=== PATIENT | female | born 1955 | race Caucasian/White ===

== ENCOUNTER 2017-11-07 07:20 | Emergency (ER) | payer MEDICAID ==
--- NOTE | 2017-11-07 07:53 | EDM.PDOC ---
ED HPI GENERAL MEDICAL PROBLEM - General Chief Complaint: Chest Pain Stated Complaint: chest pain Time Seen by Provider: 11/07/17 07:30 Source of Information: Reports: Patient, [facility] Records History Limitations: Reports: No Limitations - History of Present Illness INITIAL COMMENTS - FREE TEXT/NARRATIVE: Patient presents to ER with complaints of chest/midepigastric pain. States pain started last evening but is worse this am. "Feels like someone is sitting on my chest". She denies shortness of breath or nausea. States fingers are hurting. When asked location of pain, points to midepigastric region. Has extensive medical history, see PMH. Has been at the [facility] now for a year. She was given 4 81 mg ASA prior to arrival. History of GERD, takes Protonix BID. Denies any concerns with that as of late. No blood in her stool that she is aware of. Duration: Day(s):, Getting Worse Location: Reports: Chest, Abdomen Quality: Reports: Pressure Severity: Moderate Improves with: Reports: None Associated Symptoms: Reports: Chest Pain. 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 Chest Pain Score (Numeric/FACES): 8 - Related Data Allergies Allergy/AdvReac Type Severity Reaction Status Date / Time No Known Allergies Allergy Verified 11/07/17 09:21 Home Meds: Home Meds Gabapentin [Neurontin] 300 mg PO BEDTIME 10/15/15 [History] Metoprolol Tartrate 25 mg PO BID 10/15/15 [History] Amiodarone [Cordarone] 200 mg PO DAILY 12/25/15 [History] Polyethylene Glycol 3350 [MiraLAX] 17 gm PO DAILY 12/25/15 [History] Simvastatin [Zocor] 10 mg PO BEDTIME 12/25/15 [History] Iron Polysaccharide Complex [Polysaccharide Iron 150] 150 mg PO DAILY 01/07/16 [ History] Acetaminophen [Tylenol] 650 mg PO Q8HR PRN 12/17/16 [History] Ascorbate Calcium [Vitamin C] 500 mg PO DAILY 12/17/16 [History] Calcium Carbonate/Vitamin D3 [Calcium 500-Vit D3 200 Tablet] 1 tab PO DAILY [History] Lactulose [Constulose] 15 ml PO DAILY 12/17/16 [History] Levothyroxine Sodium [Synthroid] 75 mcg PO DAILY 12/17/16 [History] Melatonin 1 tab PO BEDTIME PRN 12/17/16 [History] Multivitamin with Minerals [Multivitamins with Minerals] 1 tab PO DAILY [History] Pantoprazole Sodium 40 mg PO BID 12/17/16 [History] Polyvinyl Alcohol [Liquitears] 1 drop EYEBOTH ASDIRECTED PRN 12/17/16 [History] Potassium Chloride 10 meq PO DAILY 12/17/16 [History] Rivaroxaban [Xarelto] 20 mg PO WITHBREAKFAST 12/17/16 [History] Sennosides/Docusate Sodium [Senna Plus Tablet] 2 tab PO BID 12/17/16 [History] Acetaminophen/HYDROcodone [[place] 325-10 MG] 1 tab PO Q6H PRN #14 tablet [Rx] Past Medical History HEENT History: Reports: Impaired Vision, Other (See Below) Other HEENT History: dental caries. Pt wears glasses and states that she sees well with them Cardiovascular History: Reports: Afib, High Cholesterol, Hypertension Respiratory History: Reports: Asthma Gastrointestinal History: Reports: GERD Genitourinary History: Reports: Acute Renal Failure, Urinary Incontinence CHECKOUT OPERATOR History: Reports: Dysfunctional Uterine Bleeding, , Other (See Below) Other CHECKOUT OPERATOR History: uterine cancer Musculoskeletal History: Reports: Arthritis, Back Pain, Chronic, Other (See Below) Other Musculoskeletal History: left knee pain Neurological History: Reports: Neuropathy, Diabetic Psychiatric History: Reports: Depression Endocrine/Metabolic History: Reports: Diabetes, Type II, Obesity/BMI 30+ Hematologic History: Reports: Anemia Oncologic (Cancer) History: Reports: Ovarian - Infectious Disease History Infectious Disease History: Reports: Chicken Pox, Measles, Mumps - Past Surgical History HEENT Surgical History: Reports: None Cardiovascular Surgical History: Reports: None Respiratory Surgical History: Reports: None GI Surgical History: Reports: Hernia Repair/Other Female Surgical History: Reports: None Endocrine Surgical History: Reports: None Neurological Surgical History: Reports: None Social & Family History - Family History Family Medical History: Noncontributory - Tobacco Use Smoking Status *Q: Never Smoker - Caffeine Use Caffeine Use: Reports: Soda ED ROS GENERAL - Review of Systems Review Of Systems: See Below Constitutional: Reports: Weakness. Denies: Fever, Chills, Malaise, Decreased Appetite HEENT: Reports: No Symptoms Respiratory: Denies: Shortness of Breath, Cough Cardiovascular: Reports: Chest Pain. Denies: Edema, Lightheadedness Endocrine: Reports: Fatigue GI/Abdominal: Reports: Abdominal Pain. Denies: Nausea, Vomiting : Reports: Incontinence Musculoskeletal: Reports: Hand Pain, Leg Pain Skin: Reports: No Symptoms Neurological: Reports: Other (restless arm and leg movements) ED EXAM, GENERAL - Physical Exam Exam: See Below Exam Limited By: No Limitations General Appearance: Alert, WD/WN, No Apparent Distress Ears: Normal External Exam, Normal TMs Nose: Normal Inspection, Normal Mucosa, No Blood Throat/Mouth: Normal Inspection, Normal Oropharynx Head: Normocephalic Neck: Normal Inspection, Supple, Non-Tender Respiratory/Chest: No Respiratory Distress, Lungs Clear, Normal Breath Sounds Cardiovascular: Regular Rate, Rhythm GI/Abdominal: Normal Bowel Sounds, Soft, Non-Tender Extremities: Normal Inspection Neurological: Alert, Oriented Skin Exam: Warm Course - Vital Signs Last Recorded V/S: Last Vital Signs Temp 96.7 F 11/07/17 07:29 Pulse 86 11/07/17 08:15 Resp 18 11/07/17 08:15 BP 158/75 H 11/07/17 08:15 Pulse Ox 97 11/07/17 08:15 - Orders/Labs/Meds Orders: Active Orders 24 hr Category Date Time Status Chest 1V Frontal [CR] Stat Exams 11/07/17 07:00 Taken Labs: Laboratory Tests 11/07/17 11/07/17 11/07/17 Range/Units 07:25 07:25 07:25 WBC 7.5 (5.0-10.0) 10^3/uL RBC 4.06 (4.00-5.50) 10^6/uL Hgb 12.2 (12.0-16.0) g/dL Hct 39.8 (37.0-47.0) % MCV 98.0 H (82.0-94.0) fL MCH 30.0 (27.0-32.0) pg MCHC 30.7 L (33.0-38.0) g/dL RDW Coeff of Barbara 12.6 (11.0-15.0) % Plt Count 234 (150-400) 10^3/uL Neut % (Auto) 60.2 (35-85) % Lymph % (Auto) 27.3 (10-55) % [place] % (Auto) 10.5 (0-16) % Eos % (Auto) 1.6 (0-5) % Baso % (Auto) 0.4 (0-3) % Neut # (Auto) 4.49 (1.80-7.00) 10^3/uL Lymph # (Auto) 2.04 (1.00-4.80) 10^3/uL [place] # (Auto) 0.78 (0.00-0.80) 10^3/uL Eos # (Auto) 0.12 (0.00-0.45) 10^3/uL Baso # (Auto) 0.03 10^3/uL PT 11.8 (9.7-12.3) SEC INR 1.15 (0.92-1.18) Sodium 139 (136-145) mEq/L Potassium 4.4 (3.5-5.0) mEq/L Chloride 102 (98-106) mEq/L Carbon Dioxide 33 H (21-32) mmol/L BUN 28 H (7-18) mg/dL Creatinine 1.5 H (0.6-1.0) mg/dL Est Cr Clr Drug Dosing 47.47 mL/min Estimated GFR (MDRD) 35 L (>=60) mL/min Glucose 101 H (75-99) mg/dL Calcium 9.1 (8.4-10.1) mg/dL Total Bilirubin 0.5 (0.0-1.0) mg/dL AST 18 (15-37) U/L ALT 15 (12-78) U/L Alkaline Phosphatase 89 (46-116) U/L Lactate Dehydrogenase 86 L (100-190) U/L Creatine Kinase 28 (21-215) U/L Troponin I < 0.017 (0.00-0.06) ng/mL C-Reactive Protein 0.8 (0.2-0.8) mg/dL Total Protein 7.4 (6.4-8.2) g/dL Albumin 3.4 (3.4-5.0) g/dL Urine Color (YELLOW) Urine Appearance (CLEAR) Urine pH (4.5-8.0) Ur Specific [place] (1.003-1.020) Urine Protein (NEGATIVE) mg/dL Urine Glucose (UA) (NEGATIVE) mg/dL Urine Ketones (NEGATIVE) mg/dL Urine Occult Blood (NEGATIVE) Urine Nitrite (NEGATIVE) Urine Bilirubin (NEGATIVE) Urine Urobilinogen (0.2-1.0) EU/dL Ur Leukocyte Esterase (NEGATIVE) Urine RBC (0-5) /HPF Urine WBC (0-5) /HPF Ur Squamous Epith Cells (NOT SEEN) /HPF Urine Bacteria (NOT SEEN) /HPF 11/07/17 Range/Units 08:04 WBC (5.0-10.0) 10^3/uL RBC (4.00-5.50) 10^6/uL Hgb (12.0-16.0) g/dL Hct (37.0-47.0) % MCV (82.0-94.0) fL MCH (27.0-32.0) pg MCHC (33.0-38.0) g/dL RDW Coeff of [place] (11.0-15.0) % Plt Count (150-400) 10^3/uL Neut % (Auto) (35-85) % Lymph % (Auto) (10-55) % [place] % (Auto) (0-16) % Eos % (Auto) (0-5) % Baso % (Auto) (0-3) % Neut # (Auto) (1.80-7.00) 10^3/uL Lymph # (Auto) (1.00-4.80) 10^3/uL [place] # (Auto) (0.00-0.80) 10^3/uL Eos # (Auto) (0.00-0.45) 10^3/uL Baso # (Auto) 10^3/uL PT (9.7-12.3) SEC INR (0.92-1.18) Sodium (136-145) mEq/L Potassium (3.5-5.0) mEq/L Chloride (98-106) mEq/L Carbon Dioxide (21-32) mmol/L BUN (7-18) mg/dL Creatinine (0.6-1.0) mg/dL Est Cr Clr Drug Dosing mL/min Estimated GFR (MDRD) (>=60) mL/min Glucose (75-99) mg/dL Calcium (8.4-10.1) mg/dL Total Bilirubin (0.0-1.0) mg/dL AST (15-37) U/L ALT (12-78) U/L Alkaline Phosphatase (46-116) U/L Lactate Dehydrogenase (100-190) U/L Creatine Kinase (21-215) U/L Troponin I (0.00-0.06) ng/mL C-Reactive Protein (0.2-0.8) mg/dL Total Protein (6.4-8.2) g/dL Albumin (3.4-5.0) g/dL Urine Color Yellow (YELLOW) Urine Appearance Clear (CLEAR) Urine pH 7.5 (4.5-8.0) Ur Specific [place] 1.015 (1.003-1.020) Urine Protein Negative (NEGATIVE) mg/dL Urine Glucose (UA) Negative (NEGATIVE) mg/dL Urine Ketones Negative (NEGATIVE) mg/dL Urine Occult Blood Negative (NEGATIVE) Urine Nitrite Negative (NEGATIVE) Urine Bilirubin Negative (NEGATIVE) Urine Urobilinogen 0.2 (0.2-1.0) EU/dL Ur Leukocyte Esterase Large H (NEGATIVE) Urine RBC Not seen (0-5) /HPF Urine WBC 10-20 H (0-5) /HPF Ur Squamous Epith Cells Few H (NOT SEEN) /HPF Urine Bacteria Few H (NOT SEEN) /HPF Meds: Medications Discontinued Medications Generic Name Dose Route Start Last Admin Trade Name Freq PRN Reason Stop Dose Admin Al Hydroxide/Mg Hydroxide 30 0 ml 11/07/17 07:54 11/07/17 08:04 ml/ Lidocaine HCl 15 ml PO 11/07/17 07:55 45 ml ONETIME ONE Administration - Re-Assessments/Exams Free Text/Narrative Re-Assessment/Exam: 11/07/17 07:58 EKG shows atrial fib with controlled rate. Labs all normal. 11/07/17 08:16 Patient was given GI cocktail. Is currently pain free Departure - Departure Time of Disposition: 08:16 Disposition: Home, Self-Care 01 Condition: Good Clinical Impression: Atypical chest pain, Gastroesophageal reflux disease Forms: ED Department Discharge Additional Instructions: 1. Usual meds as directed, continue with Protonix BID. Add Carafate 1 gm TID before meals. 2. Continue to monitor blood pressure BID and call if continues to run high as meds may need to be adjusted - My Orders Last 24 Hours: My Active Orders 11/07/17 07:00 Chest 1V Frontal [CR] Stat - Assessment/Plan Last 24 Hours: My Active Orders 11/07/17 07:00 Chest 1V Frontal [CR] Stat
[2017-11-07 07:54] LABS: CHLORIDE,CL 102 mEq/L (98-106); SODIUM,NA 139 mEq/L (136-145)
[2017-11-07] MEDS ORDERED: Alum Hydrox/Mag Hydrox/Simeth 30 ML, Lidocaine 2% 15 ML PO ONE ×2 (07:54)
[2017-11-07 09:41] VITALS: BP 158/75
== END 2017-11-07 10:35 | disposition home or self-care (01) ==
LOC: CC.ED 07:20
DX: R07.89 Other chest pain (principal); K21.9 Gastro-esophageal reflux disease without esophagitis; I48.91 Unspecified atrial fibrillation; E78.00 Pure hypercholesterolemia, unspecified; I10 Essential (primary) hypertension; J45.909 Unspecified asthma, uncomplicated; E11.9 Type 2 diabetes mellitus without complications; Z79.899 Other long term (current) drug therapy
CPT/HCPCS: 36415; 71045; 80053; 81001; 82550; 83615; 84484; 85025; 85610; 86140; 93005; 99285; A9270

== ENCOUNTER 2017-11-18 01:18 | Emergency (ER) | payer MEDICAID ==
[2017-11-18 01:42] VITALS: BP 141/64
[2017-11-18 01:50] LABS: CHLORIDE,CL 101 mEq/L (98-106); SODIUM,NA 141 mEq/L (136-145)
--- NOTE | 2017-11-18 02:22 | EDM.PDOC ---
ED HPI GENERAL MEDICAL PROBLEM - General Chief Complaint: Chest Pain Stated Complaint: CHEST PAIN Time Seen by Provider: 11/18/17 01:20 Source of Information: Reports: Patient, EMS, Detention Records History Limitations: Reports: No Limitations - History of Present Illness INITIAL COMMENTS - FREE TEXT/NARRATIVE: Vira is a 62 yo female who is brought into the ER via [facility]. She states around 2000hrs this evening she started feeling some chest discomfort. assisted notes reviewed and state she was compaining of chest discomfort/ pressure to the staff around 2340 with initial vital signs being T96.3, P74, R16 BP 174/101 and O2 Sat 92%. Per auscultation it was noted she had an irregular heart beat. Notes also state she had her BP medication around 2030 this evening and 1 Tums for an upset stomach, which didn't seem to help. She was recently in the emergency room a few weeks ago with the same symptoms and it was thought to be GERD. She was started on Carafate at that time. She also has been diagnosed with a UTI and is currently on Rocephin. She admits to being sedentary and if not in her bed she uses a wheelchair. States she never knew she has a history of atrial fibrillation or on any anti- coagulation for it. She is currently taking Xarelto per her alf records with last dose given yesterday. When asking for details about her chest pain, she states it is not a pain and more so of just a discomfort. She denies any shortness of breath. Describes the discomfort to be midsternal and down in upper abdomen area. 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: Acetaminophen, Nitroglycerin Chest Pain Score (Numeric/FACES): 7 - Related Data Allergies Allergy/AdvReac Type Severity Reaction Status Date / Time No Known Allergies Allergy Verified 11/07/17 09:21 Home Meds: Home Meds Gabapentin [Neurontin] 300 mg PO BEDTIME 10/15/15 [History] Metoprolol Tartrate 25 mg PO BID 10/15/15 [History] Amiodarone [Cordarone] 200 mg PO DAILY 12/25/15 [History] Polyethylene Glycol 3350 [MiraLAX] 17 gm PO DAILY 12/25/15 [History] Simvastatin [Zocor] 10 mg PO BEDTIME 12/25/15 [History] Iron Polysaccharide Complex [Polysaccharide Iron 150] 325 mg PO DAILY 01/07/16 [ History] Acetaminophen [Tylenol] 650 mg PO Q8HR PRN 12/17/16 [History] Ascorbate Calcium [Vitamin C] 500 mg PO DAILY 12/17/16 [History] Calcium Carbonate/Vitamin D3 [Calcium 500-Vit D3 200 Tablet] 1 tab PO DAILY [History] Levothyroxine Sodium [Synthroid] 75 mcg PO DAILY 12/17/16 [History] Multivitamin with Minerals [Multivitamins with Minerals] 1 tab PO DAILY [History] Pantoprazole Sodium 40 mg PO BID 12/17/16 [History] Polyvinyl Alcohol [Liquitears] 1 drop EYEBOTH ASDIRECTED PRN 12/17/16 [History] Potassium Chloride 10 meq PO DAILY 12/17/16 [History] Rivaroxaban [Xarelto] 20 mg PO WITHBREAKFAST 12/17/16 [History] Sennosides/Docusate Sodium [Senna Plus Tablet] 2 tab PO BID 12/17/16 [History] Acetaminophen/HYDROcodone [[place] 325-10 MG] 1 tab PO TID 11/18/17 [History] Calcium Carb/Magnesium Hydrox [Antacid Chewable Tablet] 1 tab PO QID PRN [History] Mag Hydrox/Al Hydrox/Simeth [Liquid Antacid Suspension] 30 ml PO QID PRN [History] Magnesium Hydroxide [Milk of Magnesia] 30 ml PO DAILY PRN 11/18/17 [History] amLODIPine Besylate [Norvasc] 5 mg PO BEDTIME 11/18/17 [History] cefTRIAXone [Rocephin] 1 gm IM DAILY 11/18/17 [History] Past Medical History HEENT History: Reports: Impaired Vision, Other (See Below) Other HEENT History: dental caries. 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 thigh with packing. On amoxicillin for ulcer - Infectious Disease History Infectious Disease History: Reports: Chicken Pox, Measles, Mumps - Past Surgical History HEENT Surgical History: Reports: None Cardiovascular Surgical History: Reports: None Respiratory Surgical History: Reports: None GI Surgical History: Reports: Hernia Repair/Other Female Surgical History: Reports: None Endocrine Surgical History: Reports: None Neurological Surgical History: Reports: None Social & Family History - Family History Family Medical History: Noncontributory - Tobacco Use Smoking Status *Q: Never Smoker - Caffeine Use Caffeine Use: Reports: None - Recreational Drug Use Recreational Drug Use: No ED ROS GENERAL - Review of Systems Review Of Systems: See Below Constitutional: Reports: Decreased Appetite. Denies: Fever, Chills HEENT: Reports: No Symptoms Respiratory: Denies: Shortness of Breath, Wheezing, Cough Cardiovascular: Reports: Edema. Denies: Chest Pain, Lightheadedness, Palpitations, Syncope GI/Abdominal: Reports: Abdominal Pain, Decreased Appetite, Nausea, Vomiting. Denies: Constipation, Diarrhea : Reports: No Symptoms. Denies: Dysuria, Frequency ED EXAM, GENERAL - Physical Exam Exam: See Below Exam Limited By: No Limitations General Appearance: Alert, No Apparent Distress, Other (patient is sitting comfortably in examination room, laughing and having normal conversation with nurse. ). No: Anxious Nose: Normal Inspection Throat/Mouth: Normal Inspection, Normal Lips, Normal Oropharynx, Normal Voice, No Airway Compromise Head: Atraumatic, Normocephalic Neck: Normal Inspection, Supple Respiratory/Chest: No Respiratory Distress, Lungs Clear, Normal Breath Sounds, No Accessory Muscle Use Cardiovascular: Normal Peripheral Pulses, No Edema, No Murmur, Irregularly Irregular GI/Abdominal: Normal Bowel Sounds, Soft, No Organomegaly, No Distention, No Mass , Other (morbidly obese, mild epigastric discomfort) Extremities: Normal Inspection, No Pedal Edema Neurological: Alert, Normal Cognition, No Motor/Sensory Deficits Psychiatric: Normal Affect, Normal Mood Skin Exam: Warm, Dry, Intact, Normal Color, No Rash EKG INTERPRETATION EKG Date: 11/18/17 Rhythm: A-Fib Course - Vital Signs Last Recorded V/S: Last Vital Signs Temp 97.3 F 11/18/17 01:20 Pulse 88 11/18/17 01:42 Resp 18 11/18/17 01:42 BP 141/64 H 11/18/17 01:42 Pulse Ox 96 11/18/17 01:42 - Orders/Labs/Meds Orders: Active Orders 24 hr Category Date Time Status Chest 1V Frontal [CR] Stat Exams 11/18/17 01:10 Taken Labs: Laboratory Tests 11/18/17 11/18/17 11/18/17 Range/Units 01:20 01:20 01:20 WBC 11.7 H (5.0-10.0) 10^3/uL RBC 4.43 (4.00-5.50) 10^6/uL Hgb 13.6 (12.0-16.0) g/dL Hct 42.1 (37.0-47.0) % MCV 95.0 H (82.0-94.0) fL MCH 30.7 (27.0-32.0) pg MCHC 32.3 L (33.0-38.0) g/dL RDW Coeff of [place] 12.6 (11.0-15.0) % Plt Count 297 (150-400) 10^3/uL Neut % (Auto) 58.4 (35-85) % Lymph % (Auto) 30.3 (10-55) % [place] % (Auto) 10.1 (0-16) % Eos % (Auto) 0.9 (0-5) % Baso % (Auto) 0.3 (0-3) % Neut # (Auto) 6.85 (1.80-7.00) 10^3/uL Lymph # (Auto) 3.55 (1.00-4.80) 10^3/uL [place] # (Auto) 1.18 H (0.00-0.80) 10^3/uL Eos # (Auto) 0.10 (0.00-0.45) 10^3/uL Baso # (Auto) 0.04 10^3/uL PT 13.0 H (9.7-12.3) SEC INR 1.27 H (0.92-1.18) APTT 38.1 H (23.2-32.3) SEC Sodium 141 (136-145) mEq/L Potassium 3.8 (3.5-5.0) mEq/L Chloride 101 (98-106) mEq/L Carbon Dioxide 29 (21-32) mmol/L BUN 35 H (7-18) mg/dL Creatinine 1.7 H (0.6-1.0) mg/dL Est Cr Clr Drug Dosing 43.17 mL/min Estimated GFR (MDRD) 31 L (>=60) mL/min Glucose 118 H (75-99) mg/dL Calcium 9.5 (8.4-10.1) mg/dL Total Bilirubin 0.5 (0.0-1.0) mg/dL AST 25 (15-37) U/L ALT 17 (12-78) U/L Alkaline Phosphatase 85 (46-116) U/L Lactate Dehydrogenase 80 L (100-190) U/L Creatine Kinase 59 (21-215) U/L Troponin I < 0.017 (0.00-0.06) ng/mL C-Reactive Protein 2.6 H (0.2-0.8) mg/dL Total Protein 7.8 (6.4-8.2) g/dL Albumin 3.4 (3.4-5.0) g/dL Departure - Departure Time of Disposition: 02:26 Disposition: Home, Self-Care 01 Clinical Impression: Atypical chest pain Gastroesophageal reflux disease Qualifiers: Esophagitis presence: esophagitis presence not specified Qualified Code(s): K21.9 - Gastro-esophageal reflux disease without esophagitis Referrals: Nikos Finn MD [Primary Care Provider] - Additional Instructions: 1) Continue with current medications 2) Recommend taking Carafate as prescribed 3) Discussed signs and symptoms to monitor for and advise returning to ER if any worsening of symptoms. - Problem List & Annotations (1) Gastroesophageal reflux disease SNOMED Code(s): 795896420 Code(s): K21.9 - GASTRO-ESOPHAGEAL REFLUX DISEASE WITHOUT ESOPHAGITIS Status: Acute Current Visit: Yes Qualifiers: Esophagitis presence: esophagitis presence not specified Qualified Code(s) : K21.9 - Gastro-esophageal reflux disease without esophagitis (2) Atypical chest pain SNOMED Code(s): 680958980 Code(s): R07.89 - OTHER CHEST PAIN Status: Acute Current Visit: Yes (3) A-fib SNOMED Code(s): 89288832 Code(s): I48.91 - UNSPECIFIED ATRIAL FIBRILLATION Status: Chronic Priority: Medium Current Visit: No Onset Date: ~10/26/15 Qualifiers: Atrial fibrillation type: chronic - My Orders Last 24 Hours: My Active Orders 11/18/17 01:10 Chest 1V Frontal [CR] Stat - Assessment/Plan Last 24 Hours: My Active Orders 11/18/17 01:10 Chest 1V Frontal [CR] Stat Plan: Laboratory work was stable. EKG showed Atrial Fibrillation at 109bpm. Watching on telemetry during her stay did show heart rate to be in the 70-80s predominately. Vira was able to relax and admitted to feeling a lot better. She denied any further discomfort. Cardiac work up was negative. Discussed atrial fibrillation, chest pain, signs and symptoms to watch for with Vira. Again, Vira has been doing well in ER and will discharge back home at this time. Vira verbalized understanding.
== END 2017-11-18 04:00 | disposition home or self-care (01) ==
LOC: CC.ED 01:18
DX: K21.9 Gastro-esophageal reflux disease without esophagitis (principal); R07.89 Other chest pain; I48.91 Unspecified atrial fibrillation; I10 Essential (primary) hypertension; E11.40 Type 2 diabetes mellitus with diabetic neuropathy, unspecified; E66.9 Obesity, unspecified; Z79.899 Other long term (current) drug therapy
CPT/HCPCS: 36415; 71045; 80053; 82550; 83615; 84484; 85025; 85610; 85730; 86140; 93005; 99285

== ENCOUNTER 2018-02-06 23:06 | Emergency (ER) | payer MEDICAID ==
--- NOTE | 2018-02-06 23:16 | EDM.PDOC ---
ED HPI GENERAL MEDICAL PROBLEM - General Chief Complaint: Lower Extremity Injury/Pain Stated Complaint: right great toe pain Time Seen by Provider: 02/06/18 23:11 Source of Information: Reports: Patient, EMS, RN History Limitations: Reports: No Limitations - History of Present Illness INITIAL COMMENTS - FREE TEXT/NARRATIVE: This patient is a 62 year old female that presents to the ER. [facility] Patient reports that earlier this afternoon she started having right greater toe pain. Patient reports she gets this pain chronically and she wraps a soft gauze around the toe and it helps. Patient reports the nurse [facility] the [facility] did this. Patient reports she told the nurse she wanted to go to the ER for her toe pain. Patient reports she was given a [place] prior to coming to the ER for her toe pain. The nurse reports an ambulance was called to bring patient to the ER for toe pain complaint. When patient arrives to the ER she reports having the right greater toe pain, no injury, and its chronic. I evaluate the patient and discuss her chronic toe pain. Patient reports she does not like taking narcotic pain medication for her toe pain, but says that Tylenol does not work. I educated the patient that I would not be cahning her pain medicatoins for a chronic pain condition, that she would need to consult with her PCP about this concern. She then reports that today her voice feels like she is talking harsh like a man. She then reports that since early evening about 4pm, having chest pressure. She reports the pain is substernal region. Patient deneis nichols, dizziness, n, v, d, f, neck pain, neck stiffness, abd pain, unilateral weaknesses, urinary/bowel changes. This patient is alert and oriented. I will address emergent concern for ER visit today. I have ordered labs, ekg, and cxr. Onset: Today Onset Date: 02/06/18 Onset Time: 18:00 Location: Reports: Chest, Lower Extremity, Right Quality: Reports: Pressure Severity: Mild Improves with: Reports: None Worsens with: Reports: None Associated Symptoms: Reports: Chest Pain. Denies: Confusion, Cough, cough w sputum, Diaphoresis, Fever/Chills, Headaches, Loss of Appetite, Malaise, Nausea/ Vomiting, Rash, Seizure, Shortness of Breath, Syncope, Weakness Right 2-Long toe Pain Score (Numeric/FACES): 8 - Related Data Allergies Allergy/AdvReac Type Severity Reaction Status Date / Time No Known Allergies Allergy Verified 02/06/18 23:28 Home Meds: Home Meds Gabapentin [Neurontin] 300 mg PO BEDTIME 10/15/15 [History] Metoprolol Tartrate 25 mg PO BID 10/15/15 [History] Amiodarone [Cordarone] 200 mg PO DAILY 12/25/15 [History] Polyethylene Glycol 3350 [MiraLAX] 17 gm PO DAILY 12/25/15 [History] Simvastatin [Zocor] 10 mg PO BEDTIME 12/25/15 [History] Iron Polysaccharide Complex [Polysaccharide Iron 150] 325 mg PO DAILY 01/07/16 [ History] Acetaminophen [Tylenol] 650 mg PO Q8HR PRN 12/17/16 [History] Ascorbate Calcium [Vitamin C] 500 mg PO DAILY 12/17/16 [History] Calcium Carbonate/Vitamin D3 [Calcium 500-Vit D3 200 Tablet] 1 tab PO DAILY [History] Levothyroxine Sodium [Synthroid] 75 mcg PO DAILY 12/17/16 [History] Multivitamin with Minerals [Multivitamins with Minerals] 1 tab PO DAILY [History] Pantoprazole Sodium 40 mg PO BID 12/17/16 [History] Polyvinyl Alcohol [Liquitears] 1 drop EYEBOTH ASDIRECTED PRN 12/17/16 [History] Potassium Chloride 10 meq PO DAILY 12/17/16 [History] Rivaroxaban [Xarelto] 20 mg PO WITHBREAKFAST 12/17/16 [History] Sennosides/Docusate Sodium [Senna Plus Tablet] 2 tab PO BID 12/17/16 [History] Acetaminophen/HYDROcodone [[place] 325-10 MG] 1 tab PO TID 11/18/17 [History] Calcium Carb/Magnesium Hydrox [Antacid Chewable Tablet] 1 tab PO QID PRN [History] Mag Hydrox/Al Hydrox/Simeth [Liquid Antacid Suspension] 30 ml PO QID PRN [History] Magnesium Hydroxide [Milk of Magnesia] 30 ml PO DAILY PRN 11/18/17 [History] amLODIPine Besylate [Norvasc] 5 mg PO BEDTIME 11/18/17 [History] cefTRIAXone [Rocephin] 1 gm IM DAILY 11/18/17 [History] Past Medical History HEENT History: Reports: Impaired Vision, Other (See Below) Other HEENT History: dental caries. Pt wears glasses and states that she sees well with them Cardiovascular History: Reports: Afib, High Cholesterol, Hypertension Respiratory History: Reports: Asthma Gastrointestinal History: Reports: GERD Genitourinary History: Reports: Acute Renal Failure, Urinary Incontinence PHYSIOTHERAPY AIDE History: Reports: Dysfunctional Uterine Bleeding, , Other (See Below) Other PHYSIOTHERAPY AIDE History: uterine cancer Musculoskeletal History: Reports: Arthritis, Back Pain, Chronic, Other (See Below) Other Musculoskeletal History: left knee pain Neurological History: Reports: Neuropathy, Diabetic Psychiatric History: Reports: Depression Endocrine/Metabolic History: Reports: Diabetes, Type II, Obesity/BMI 30+ Hematologic History: Reports: Anemia Oncologic (Cancer) History: Reports: Ovarian Dermatologic History: Reports: Other (See Below) Other Dermatologic History: open wound left lat. thigh with packing. On amoxicillin for ulcer - Infectious Disease History Infectious Disease History: Reports: Chicken Pox, Measles, Mumps - Past Surgical History HEENT Surgical History: Reports: None Cardiovascular Surgical History: Reports: None Respiratory Surgical History: Reports: None GI Surgical History: Reports: Hernia Repair/Other Female Surgical History: Reports: None Endocrine Surgical History: Reports: None Neurological Surgical History: Reports: None Social & Family History - Family History Family Medical History: Noncontributory - Caffeine Use Caffeine Use: Reports: None Review of Systems - Review of Systems Review Of Systems: See Below Constitutional: Reports: No Symptoms Eyes: Reports: No Symptoms Ears: Reports: No Symptoms Nose: Reports: No Symptoms Mouth/Throat: Reports: Hoarse Voice. Denies: Lip Swelling, Tongue Swelling, Loose Teeth, Pain, Throat Swelling, Muffled Voice, Difficulty Swallowing, Painful Swallowing Respiratory: Reports: No Symptoms. Denies: Shortness of Breath, Wheezing, Pleuritic Chest Pain, Cough, Sputum Cardiovascular: Reports: Chest Pain. Denies: Edema, Irregular Heart Rate, Lightheadedness, Palpitations, Syncope GI/Abdominal: Reports: No Symptoms Genitourinary: Reports: No Symptoms Musculoskeletal: Reports: Other (Right greater toe pain) Skin: Reports: No Symptoms Neurological: Reports: No Symptoms Psychiatric: Reports: No Symptoms ED EXAM, GENERAL - Physical Exam Exam: See Below Exam Limited By: No Limitations General Appearance: Alert, WD/WN, No Apparent Distress, Obese Eye Exam: Bilateral Eye: Normal Inspection, PERRL Ears: Normal External Exam, Normal Canal, Hearing Grossly Normal, Normal TMs Ear Exam: Bilateral Ear: Auricle Normal, Canal Normal, TM normal Nose: Normal Inspection, Normal Mucosa, No Blood Throat/Mouth: Normal Inspection, Normal Lips, Normal Gums, Normal Oropharynx, Normal Voice, No Airway Compromise, Other (dental decay and cavities) Head: Atraumatic, Normocephalic Neck: Normal Inspection, Supple, Non-Tender, Full Range of Motion Respiratory/Chest: No Respiratory Distress, Lungs Clear, Normal Breath Sounds, No Accessory Muscle Use, Chest Non-Tender. No: Respiratory Distress, Decreased Breath Sounds, Crackles, Rales, Rhonchi, Wheezing, Stridor, Pleural Rub, Accessory Muscle Use, Retractions, Splinting, Prolonged Expiration Cardiovascular: Normal Peripheral Pulses, No Edema, No Gallop, No JVD, No Murmur , No Rub, Irregularly Irregular Peripheral Pulses: 2+: Posterior Tibial (L), Posterior Tibial (R), Dorsalis Pedis (L), Dorsalis Pedis (R) GI/Abdominal: Normal Bowel Sounds, Soft, Non-Tender, No Organomegaly, No Distention, No Abnormal Bruit, No Mass, Pelvis Stable Back Exam: Normal Inspection, Full Range of Motion. No: CVA Tenderness (L), CVA Tenderness (R), Decreased Range of Motion, Muscle Spasm, Paraspinal Tenderness, Vertebral Tenderness Extremities: Normal Inspection, Normal Range of Motion, No Pedal Edema, Normal Capillary Refill, Other (Right greater toe pain. No swelling, no redness, no heat, no drainage. No injury per patient. ROM intact. Neurovascular intact. Sensory/Motor function intact. ). No: Slow Capillary Refill, Wicho's Sign, Leg Pain, Limited Range of Motion, Redness Neurological: Alert, Oriented, CN II-XII Intact, Normal Cognition, Normal Gait, No Motor/Sensory Deficits Psychiatric: Normal Affect, Normal Mood Skin Exam: Warm, Dry, Intact, Normal Color, No Rash Lymphatic: No Adenopathy EKG INTERPRETATION EKG Date: 02/06/18 Time: 23:19 Rhythm: A-Fib Rate (Beats/Min): 63 ST-T: Normal Comparison: No Change Course - Vital Signs Last Recorded V/S: Last Vital Signs Temp 97.2 F 02/06/18 23:23 Pulse 70 02/06/18 23:23 Resp 16 02/06/18 23:23 BP Pulse Ox 96 02/06/18 23:23 - Orders/Labs/Meds Orders: Active Orders 24 hr Category Date Time Status Chest 1V Frontal [CR] Stat Exams 02/06/18 23:15 Ordered Labs: Laboratory Tests 02/06/18 02/06/18 Range/Units 23:20 23:20 WBC 8.5 (5.0-10.0) 10^3/uL RBC 4.28 (4.00-5.50) 10^6/uL Hgb 13.2 (12.0-16.0) g/dL Hct 41.9 (37.0-47.0) % MCV 97.9 H (82.0-94.0) fL MCH 30.8 (27.0-32.0) pg MCHC 31.5 L (33.0-38.0) g/dL RDW Coeff of Barbara 12.9 (11.0-15.0) % Plt Count 263 (150-400) 10^3/uL Neut % (Auto) 54.7 (35-85) % Lymph % (Auto) 34.4 (10-55) % [place] % (Auto) 9.1 (0-16) % Eos % (Auto) 1.4 (0-5) % Baso % (Auto) 0.4 (0-3) % Neut # (Auto) 4.64 (1.80-7.00) 10^3/uL Lymph # (Auto) 2.91 (1.00-4.80) 10^3/uL [place] # (Auto) 0.77 (0.00-0.80) 10^3/uL Eos # (Auto) 0.12 (0.00-0.45) 10^3/uL Baso # (Auto) 0.03 10^3/uL Sodium 142 (136-145) mEq/L Potassium 4.4 (3.5-5.0) mEq/L Chloride 105 (98-106) mEq/L Carbon Dioxide 28 (21-32) mmol/L BUN 29 H (7-18) mg/dL Creatinine 1.5 H (0.6-1.0) mg/dL Est Cr Clr Drug Dosing 50.37 mL/min Estimated GFR (MDRD) 35 L (>=60) mL/min Glucose 115 H (75-99) mg/dL Calcium 9.1 (8.4-10.1) mg/dL Troponin I < 0.017 (0.00-0.06) ng/mL Departure - Departure Time of Disposition: 23:43 Disposition: Home, Self-Care 01 Condition: Good Clinical Impression: Atypical chest pain, Diabetic peripheral neuropathy associated with type 2 diabetes mellitus - Discharge Information *PRESCRIPTION DRUG MONITORING PROGRAM REVIEWED*: No *COPY OF PRESCRIPTION DRUG MONITORING REPORT IN PATIENT CRISTINA: No Instructions: Peripheral Neuropathy, Nonspecific Chest Pain, [id number] Referrals: Nikos Finn MD [Primary Care Provider] - Forms: ED Department Discharge Additional Instructions: Followup with you primary care provider Return to the ER for Emergencies - My Orders Last 24 Hours: My Active Orders 02/06/18 23:15 Chest 1V Frontal [CR] Stat - Assessment/Plan Last 24 Hours: My Active Orders 02/06/18 23:15 Chest 1V Frontal [CR] Stat Plan: PLEASE SEE RN NOTE FOR PFSH.
[2018-02-06 23:42] LABS: CHLORIDE,CL 105 mEq/L (98-106); SODIUM,NA 142 mEq/L (136-145)
== END 2018-02-07 00:53 | disposition home or self-care (01) ==
LOC: CC.ED 23:06
DX: E11.40 Type 2 diabetes mellitus with diabetic neuropathy, unspecified (principal); R07.89 Other chest pain; I10 Essential (primary) hypertension; E78.00 Pure hypercholesterolemia, unspecified; K21.9 Gastro-esophageal reflux disease without esophagitis; F32.9 Major depressive disorder, single episode, unspecified; Z79.899 Other long term (current) drug therapy
CPT/HCPCS: 36415; 71045; 80048; 84484; 85025; 93005; 99285

== ENCOUNTER 2018-12-07 01:25 | Emergency (ER) | payer SELFPAY ==
[2018-12-07] MEDS ORDERED: fentaNYL 100 MCG/2 ML SDV IM ONE (02:08)
--- NOTE | 2018-12-07 02:23 | EDM.PDOC ---
ED HPI GENERAL MEDICAL PROBLEM - General Chief Complaint: Lower Extremity Injury/Pain Stated Complaint: knee pain Time Seen by Provider: 12/07/18 01:50 Source of Information: Reports: Patient, Fpc Records History Limitations: Reports: No Limitations - History of Present Illness INITIAL COMMENTS - FREE TEXT/NARRATIVE: Patient presents to ER per EMS with complaints of right knee pain. Staff was changing the sheets at [facility] and had her lying on her side and she slipped off the bed and landed on her knees. She states she was on her knees for a time until they could get other staff to keeley her off the floor. Does not ambulate , is a keeley lift routinely at the home. Requires assist for dressing, toileting and transferring. Patient does admit to bilateral knee pain but greater to the right knee. She denies hitting her head, no loss of consciousness. No chest pain or shortness of breath. No abdominal pain. Is on Xarelto for chronic atrial fib. Onset: Today, Sudden Duration: Minutes:, Constant Location: Reports: Lower Extremity, Right Quality: Reports: Throbbing Severity: Severe Improves with: Reports: Rest Worsens with: Reports: Movement Associated Symptoms: Reports: No Other Symptoms Left Knee Pain Score (Numeric/FACES): 7 - Related Data Allergies Allergy/AdvReac Type Severity Reaction Status Date / Time No Known Allergies Allergy Verified 12/07/18 01:45 Home Meds: Home Meds Gabapentin [Neurontin] 300 mg PO BEDTIME 10/15/15 [History] Metoprolol Tartrate 25 mg PO BID 10/15/15 [History] Amiodarone [Cordarone] 200 mg PO DAILY 12/25/15 [History] Simvastatin [Zocor] 10 mg PO BEDTIME 12/25/15 [History] Iron Polysaccharide Complex [Polysaccharide Iron 150] 325 mg PO BID 01/07/16 [ History] Acetaminophen [Tylenol] 650 mg PO Q8HR PRN 12/17/16 [History] Ascorbate Calcium [Vitamin C] 500 mg PO DAILY 12/17/16 [History] Calcium Carbonate/Vitamin D3 [Calcium 500-Vit D3 200 Tablet] 1 tab PO DAILY [History] Levothyroxine Sodium [Synthroid] 75 mcg PO DAILY 12/17/16 [History] Polyvinyl Alcohol [Liquitears] 1 drop EYEBOTH ASDIRECTED PRN 12/17/16 [History] Potassium Chloride 10 meq PO DAILY 12/17/16 [History] Rivaroxaban [Xarelto] 20 mg PO WITHBREAKFAST 12/17/16 [History] Sennosides/Docusate Sodium [Senna Plus Tablet] 2 tab PO TID 12/17/16 [History] Mag Hydrox/Al Hydrox/Simeth [Liquid Antacid Suspension] 30 ml PO QID PRN [History] Magnesium Hydroxide [Milk of Magnesia] 30 ml PO DAILY PRN 11/18/17 [History] amLODIPine Besylate [Norvasc] 10 mg PO BEDTIME 11/18/17 [History] Acetaminophen [Tylenol Extra Strength] 1,000 mg PO BID 12/07/18 [History] Dexlansoprazole [Dexilant] 60 mg PO DAILY 12/07/18 [History] Escitalopram [Lexapro] 20 mg PO DAILY 12/07/18 [History] Past Medical History HEENT History: Reports: Impaired Vision, Other (See Below) Other HEENT History: dental caries. Pt wears glasses and states that she sees well with them Cardiovascular History: Reports: Afib, High Cholesterol, Hypertension Respiratory History: Reports: Asthma Gastrointestinal History: Reports: GERD Genitourinary History: Reports: Acute Renal Failure, Urinary Incontinence DISPLAY DEPARTMENT MANAGER History: Reports: Dysfunctional Uterine Bleeding, , Other (See Below) Other DISPLAY DEPARTMENT MANAGER History: uterine cancer Musculoskeletal History: Reports: Arthritis, Back Pain, Chronic, Other (See Below) Other Musculoskeletal History: left knee pain Neurological History: Reports: Neuropathy, Diabetic Psychiatric History: Reports: Depression Endocrine/Metabolic History: Reports: Diabetes, Type II, Obesity/BMI 30+ Hematologic History: Reports: Anemia Oncologic (Cancer) History: Reports: Ovarian Dermatologic History: Reports: Other (See Below) Other Dermatologic History: open wound left lat. thigh with packing. On amoxicillin for ulcer - Infectious Disease History Infectious Disease History: Reports: Chicken Pox, Measles, Mumps - Past Surgical History HEENT Surgical History: Reports: None Cardiovascular Surgical History: Reports: None Respiratory Surgical History: Reports: None GI Surgical History: Reports: Hernia Repair/Other Female Surgical History: Reports: None Endocrine Surgical History: Reports: None Neurological Surgical History: Reports: None Social & Family History - Family History Family Medical History: Noncontributory - Tobacco Use Smoking Status *Q: Never Smoker - Caffeine Use Caffeine Use: Reports: None - Recreational Drug Use Recreational Drug Use: No Review of Systems - Review of Systems Review Of Systems: See Below Constitutional: Reports: Weakness Eyes: Reports: No Symptoms Ears: Reports: No Symptoms Nose: Reports: No Symptoms Mouth/Throat: Reports: No Symptoms Respiratory: Denies: Shortness of Breath, Cough Cardiovascular: Denies: Chest Pain, Edema GI/Abdominal: Denies: Abdominal Pain, Nausea, Vomiting Genitourinary: Reports: No Symptoms Musculoskeletal: Reports: Leg Pain, Joint Pain Skin: Reports: Pallor Neurological: Reports: Weakness ED EXAM, GENERAL - Physical Exam Exam: See Below Exam Limited By: No Limitations General Appearance: Alert, WD/WN, Moderate Distress Ears: Normal External Exam, Normal TMs Nose: Normal Inspection, Normal Mucosa, No Blood Throat/Mouth: Normal Inspection, Normal Oropharynx Head: Normocephalic Neck: Normal Inspection, Supple, Non-Tender Respiratory/Chest: No Respiratory Distress, Lungs Clear, Normal Breath Sounds Cardiovascular: Regular Rate, Rhythm GI/Abdominal: Normal Bowel Sounds, Soft, Non-Tender Extremities: Leg Pain, Limited Range of Motion (limited knee movement due to pain) Neurological: Alert, Oriented Course - Vital Signs Last Recorded V/S: Last Vital Signs Temp 95 F L 12/07/18 02:39 Pulse 74 12/07/18 02:39 Resp 18 12/07/18 02:39 BP 112/62 12/07/18 02:39 Pulse Ox 96 12/07/18 02:39 - Orders/Labs/Meds Orders: Active Orders 24 hr Category Date Time Status Knee 1V or 2V Rt [CR] Stat Exams 12/07/18 01:30 Taken Knee 3V Lt [CR] Routine Exams 12/07/18 Taken Meds: Medications Discontinued Medications Generic Name Dose Route Start Last Admin Trade Name Freq PRN Reason Stop Dose Admin Fentanyl 25 mcg 12/07/18 02:08 12/07/18 02:14 Sublimaze IM 12/07/18 02:09 25 mcg ONETIME ONE Administration - Re-Assessments/Exams Free Text/Narrative Re-Assessment/Exam: 12/07/[address] Dao, ortho at [place], returned call in regards to treatment for the fracture. As she is nonweightbearing now, will immobilize and repeat xrays in 1 week. did apply a posterior splint but poor placement due to size and chronic external rotation of her legs. Will need a large full length immobilizer when able to obtain. Departure - Departure Time of Disposition: 03:17 Disposition: Home, Self-Care 01 Condition: Fair Clinical Impression: Fracture of femur - Discharge Information *PRESCRIPTION DRUG MONITORING PROGRAM REVIEWED*: No *COPY OF PRESCRIPTION DRUG MONITORING REPORT IN PATIENT CRISTINA: No Referrals: Nikos Finn MD [Primary Care Provider] - Forms: ED Department Discharge Additional Instructions: 1. Rest 2. Elevate leg on pillow 3. Keep splint on until able to obtain full length immobilizer. Needs to be from groin to ankle to maintain stability of fracture. 4. No weight bearing. 5. Recheck xray in one week 6. Pony 5/325 one to two tabs every 6 hours for pain. No more than 4 grams of tylenol per day 7. Call with any questions or concerns. - My Orders Last 24 Hours: My Active Orders 12/07/18 Knee 3V Lt [CR] Routine 12/07/18 01:30 Knee 1V or 2V Rt [CR] Stat - Assessment/Plan Last 24 Hours: My Active Orders 12/07/18 Knee 3V Lt [CR] Routine 12/07/18 01:30 Knee 1V or 2V Rt [CR] Stat
[2018-12-07 02:41] VITALS: BP 112/62; PULSE 74
== END 2018-12-07 04:50 | disposition home or self-care (01) ==
LOC: CC.ED 01:25
DX: S72.491A Other fracture of lower end of right femur, initial encounter for closed fracture (principal); I48.91 Unspecified atrial fibrillation; E78.5 Hyperlipidemia, unspecified; E11.9 Type 2 diabetes mellitus without complications; E66.9 Obesity, unspecified; J45.909 Unspecified asthma, uncomplicated; I10 Essential (primary) hypertension; Z79.899 Other long term (current) drug therapy; Z79.01 Long term (current) use of anticoagulants; Z68.37 Body mass index [BMI] 37.0-37.9, adult; W06.XXXA Fall from bed, initial encounter; Y92.89 Other specified places as the place of occurrence of the external cause; Y93.89 Activity, other specified
CPT/HCPCS: 29505; 73560-RT; 73562-LT; 96372; 99283-25; J3010

== ENCOUNTER 2024-08-20 11:48 | Emergency (ER) | payer MEDICAID ==
[2024-08-20 12:17] LABS: BASOPHILS ABSOLUTE AUTO 0.02 10^3/uL (0.00-0.50); BASOPHILS PERCENT AUTO 0.3 % (0-1); EOSINOPHILS ABSOLUTE AUTO 0.11 10^3/uL (0.00-1.50); EOSINOPHILS PERCENT AUTO 1.5 % (0-6); HEMATOCRIT 35.4 % (37.0-47.0); HEMOGLOBIN 10.9 g/dL (12.0-16.0); IMMATURE GRAN ABSOLUTE AUTO 0.01 10^3/uL (0.00-0.49); IMMATURE GRAN PERCENT AUTO 0.1 % (0.0-4.9); LYMPHOCYTES ABSOLUTE AUTO 1.44 10^3/uL (0.60-5.00); MEAN CORPUSCULAR HEMOGLOBIN 32.1 pg (27.0-32.0); MEAN CORPUSCULAR HGB CONC 30.8 g/dL (32.0-36.0); MEAN CORPUSCULAR VOLUME 104.1 fL (83.0-97.0); MONOCYTES ABSOLUTE AUTO 0.69 10^3/uL (0.00-1.50); MONOCYTES PERCENT AUTO 9.1 % (0-10); PLATELET COUNT,PLT 205 10^3/uL (150-400); WHITE BLOOD CELL COUNT,WBC 7.6 10^3/uL (4.0-11.0)
[2024-08-20 12:20] LABS: APPEARANCE,URINE CLEAR (CLEAR); BILIRUBIN,URINE NEGATIVE (NEGATIVE); COLOR,URINE YELLOW (YELLOW); GLUCOSE,URINE NEGATIVE (NEGATIVE); KETONES,URINE NEGATIVE (NEGATIVE); LEUKOCYTE ESTERASE,URINE SMALL (NEGATIVE); NITRITE,URINE NEGATIVE (NEGATIVE); OCCULT BLOOD,URINE NEGATIVE (NEGATIVE); PROTEIN,URINE NEGATIVE (NEGATIVE); UROBILINOGEN,URINE 0.2 EU/dL (0.2-1.0)
[2024-08-20 12:31] LABS: BACTERIA,URINE FEW /HPF (NOT SEEN); RBC,URINE NOT SEEN /HPF (0-5); SQUAMOUS EPITHELIAL CELLS,UR MANY /HPF (NOT SEEN)
[2024-08-20 12:36] LABS: ALANINE AMINOTRANSFERASE,ALT 21 U/L (12-78); ALBUMIN 2.9 g/dL (3.4-5.0); ALKALINE PHOSPHATASE 87 U/L (46-116); ASPARTATE AMNIOTRANSFERASE,AST 21 U/L (15-37); BILIRUBIN TOTAL 0.5 mg/dL (0.0-1.0); BLOOD UREA NITROGEN,BUN 42 mg/dL (7-18); CALCIUM 9.2 mg/dL (8.4-10.1); CARBON DIOXIDE,CO2 32 mmol/L (21-32); CHLORIDE,CL 106 mEq/L (98-106); CREATININE 1.9 mg/dL (0.6-1.0); ESTIMATED GFR 29 mL/min (>=60); GLUCOSE RANDOM 110 mg/dL (75-99); MAGNESIUM 2.2 mg/dL (1.8-2.4); POTASSIUM,K 5.1 mEq/L (3.5-5.0); PROTEIN TOTAL,TP 6.7 g/dL (6.4-8.2); SODIUM,NA 143 mEq/L (136-145)
[2024-08-20 17:32] VITALS: BP 108/67; PULSE 74
== END 2024-08-20 14:38 | disposition home or self-care (01) ==
LOC: CC.ED 11:48
DX: R25.1 Tremor, unspecified (principal); I10 Essential (primary) hypertension; E78.00 Pure hypercholesterolemia, unspecified; E11.9 Type 2 diabetes mellitus without complications; E66.9 Obesity, unspecified; Z79.899 Other long term (current) drug therapy; Z79.890 Hormone replacement therapy
CPT/HCPCS: 36415; 71045; 80053; 81001; 83735; 85025; 86140; 99284; 99285

== ENCOUNTER 2024-08-20 15:24 | Emergency (ER) | payer MEDICAID ==
[2024-08-20] MEDS: Diphtheria,Pertussis(Acell),Tetanus Vaccine 0.5 ML Syringe IM ONE (15:34)
[2024-08-20] MEDS: Lidocaine 1% with EPINEPHrine 1:100,000 10 ML MDV INJECT ONE (15:36)
[2024-08-20] MEDS: Bacitracin Oint 1 GM U/D Packet TOP ONE (15:37)
[2024-08-20 16:09] VITALS: BP 124/88; PULSE 88
[2024-08-20] MEDS: Take Home: traMADol 50 MG, 4 Tab Pack PO ONE (18:19)
== END 2024-08-20 16:20 | disposition home or self-care (01) ==
LOC: CC.ED 15:24
DX: S92.535B Nondisplaced fracture of distal phalanx of left lesser toe(s), initial encounter for open fracture (principal); Z23 Encounter for immunization; I10 Essential (primary) hypertension; K21.9 Gastro-esophageal reflux disease without esophagitis; E78.00 Pure hypercholesterolemia, unspecified; E66.9 Obesity, unspecified; E11.9 Type 2 diabetes mellitus without complications; Z79.890 Hormone replacement therapy; Z79.899 Other long term (current) drug therapy; W23.0XXA Caught, crushed, jammed, or pinched between moving objects, initial encounter
CPT/HCPCS: 11760; 12001; 12002; 73660-T3; 90471; 90715; 99284; 99284-25; A9270-GY

== ENCOUNTER 2024-09-03 06:49 | Emergency (ER) | payer MEDICAID ==
[2024-09-03 07:36] LABS: BASOPHILS ABSOLUTE AUTO 0.03 10^3/uL (0.00-0.50); BASOPHILS PERCENT AUTO 0.4 % (0-1); EOSINOPHILS ABSOLUTE AUTO 0.07 10^3/uL (0.00-1.50); EOSINOPHILS PERCENT AUTO 1.0 % (0-6); IMMATURE GRAN ABSOLUTE AUTO 0.01 10^3/uL (0.00-0.49); IMMATURE GRAN PERCENT AUTO 0.1 % (0.0-4.9); LYMPHOCYTES ABSOLUTE AUTO 1.17 10^3/uL (0.60-5.00); LYMPHOCYTES PERCENT AUTO 16.6 % (24-44); MONOCYTES ABSOLUTE AUTO 0.91 10^3/uL (0.00-1.50); MONOCYTES PERCENT AUTO 12.9 % (0-10); NEUTROPHILS ABSOLUTE AUTO 4.86 x10^3/uL (1.80-8.00); NEUTROPHILS PERCENT AUTO 69.0 % (41-71); PLATELET COUNT,PLT 241 10^3/uL (150-400); RED BLOOD CELL COUNT 3.07 x10^6/uL (4.00-5.50); WHITE BLOOD CELL COUNT,WBC 7.1 10^3/uL (4.0-11.0)
[2024-09-03 07:41] LABS: ALANINE AMINOTRANSFERASE,ALT 27.0 U/L (12-78); ASPARTATE AMNIOTRANSFERASE,AST 21.0 U/L (15-37); BILIRUBIN TOTAL 0.6 mg/dL (0.0-1.0); BLOOD UREA NITROGEN,BUN 36.0 mg/dL (7-18); CARBON DIOXIDE,CO2 33.0 mmol/L (21-32); CHLORIDE,CL 103.0 mEq/L (98-106); CREATININE 1.7 mg/dL (0.6-1.0); EST CRCL DRUG DOSING (CG) 37.06 mL/min; GLUCOSE RANDOM 94.0 mg/dL (75-99); POTASSIUM,K 4.7 mEq/L (3.5-5.0); PROTEIN TOTAL,TP 6.7 g/dL (6.4-8.2); SODIUM,NA 138.0 mEq/L (136-145)
[2024-09-03 07:43] LABS: ESTIMATED GFR 33.0 mL/min (>=60)
[2024-09-03 07:54] LABS: APPEARANCE,URINE CLEAR (CLEAR); GLUCOSE,URINE NEGATIVE (NEGATIVE); OCCULT BLOOD,URINE NEGATIVE (NEGATIVE)
[2024-09-03 08:00] LABS: EPITHELIAL CELLS,URINE RARE /HPF (NOT SEEN)
[2024-09-03 09:57] VITALS: BP 125/64; PULSE 91
== END 2024-09-03 11:15 | disposition home or self-care (01) ==
LOC: CC.ED 06:49
DX: R25.1 Tremor, unspecified (principal); I48.91 Unspecified atrial fibrillation; E78.00 Pure hypercholesterolemia, unspecified; I10 Essential (primary) hypertension; J45.909 Unspecified asthma, uncomplicated; E11.9 Type 2 diabetes mellitus without complications; Z79.899 Other long term (current) drug therapy; Z79.890 Hormone replacement therapy
CPT/HCPCS: 36415; 71045; 80053; 81001; 83605; 83690; 85025; 86140; 99285; C1758

== ENCOUNTER 2024-11-18 00:40 | Emergency (ER) | payer MEDICARE, MEDICAID ==
[2024-11-18] MEDS: fentaNYL 100 MCG/2 ML SDV IVPUSH ONE (01:23)
[2024-11-18] MEDS: Ketamine 200 MG/20 ML MDV IVPUSH ONE (02:20)
[2024-11-18 05:34] VITALS: BP 105/77; PULSE 93
== END 2024-11-18 05:08 ==
LOC: CC.ED 00:40
DX: S82.831A Other fracture of upper and lower end of right fibula, initial encounter for closed fracture (principal); S82.101A Unspecified fracture of upper end of right tibia, initial encounter for closed fracture; I48.91 Unspecified atrial fibrillation; E78.00 Pure hypercholesterolemia, unspecified; I10 Essential (primary) hypertension; J45.909 Unspecified asthma, uncomplicated; K21.9 Gastro-esophageal reflux disease without esophagitis; E11.9 Type 2 diabetes mellitus without complications; E66.9 Obesity, unspecified; Z68.43 Body mass index [BMI] 50.0-59.9, adult; Z88.5 Allergy status to narcotic agent; Z79.01 Long term (current) use of anticoagulants; Z79.899 Other long term (current) drug therapy; W06.XXXA Fall from bed, initial encounter
CPT/HCPCS: 27752; 73590-RT; 96360; 96361; 99284; 99285-25; J3010; J3490; J7030